=== PATIENT | male | born 1995 | race Asian ===

== ENCOUNTER 2019-08-12 11:44 | Outpatient (CLI) | payer BC ==
[2019-08-12 12:42] LABS: PLATELET COUNT 243 K/uL (142-355)
[2019-08-12 12:58] LABS: POTASSIUM 3.7 mmol/L (3.6-5.2)
== END 2019-08-12 20:10 | disposition home or self-care (01) ==
LOC: LAB 11:44
PROVIDERS: Internal Medicine
DX: Z00.00 Encounter for general adult medical examination without abnormal findings (principal)
CPT/HCPCS: 36415; 80053; 80061; 81000; 84439; 84443; 85027

== ENCOUNTER 2020-02-24 10:14 | Outpatient (CLI) | payer BC | END 2020-02-24 20:36 | disposition home or self-care (01) | LOC: RAD 10:14 | DX: R76.11 Nonspecific reaction to tuberculin skin test without active tuberculosis (principal) ==